=== PATIENT | female | born 1990 | race Hispanic/Latino ===

== ENCOUNTER 2017-08-31 11:21 | Emergency (ER) | payer OTHER ==
[~2017-08-31] VITALS: Ht 152.4 cm; Wt 61.4 kg
[~2017-08-31 11:21] MED LIST: CELEXA40 MG PO; DOXYCYCLINE HY100 MG PO; FLEXERIL10 MG PO; HYDROXYZINE HCL50 MG PO; LORTAB 5-325 M1 EACH PO; MINIPRESS1 MG PO; NAPROXEN500 MG PO; PERCOCET 5/31 TABLET PO; ULTRAM50 MG PO; VISTARIL50 MG PO
[2017-08-31 13:10] LABS: HEMATOCRIT 42.1 % (36.0-46.0); HEMOGLOBIN 14.6 G/DL (11.9-15.5); MCH 30.4 PG (29.0-34.0); MCHC 34.7 G/DL (30.0-36.0); MCV 87.5 FL (83-99); PLATELET COUNT 376 K/uL (156-360); RBC DIS.WIDTH-CV 12.4 % (11.8-14.6); RBC DIS.WIDTH-SD 39.6 % (39-53); RED BLOOD COUNT 4.81 M/uL (3.80-5.20); WHITE BLOOD COUNT 6.8 K/uL (4.1-10.2)
[2017-08-31 13:23] LABS: ALBUMIN 4.7 g/dL (3.2-4.8); CHLORIDE 109 mEq/L (99-109); POTASSIUM 4.1 mEq/L (3.7-5.4); SODIUM 142 mEq/L (136-147)
[2017-08-31 13:25] LABS: GLUCOSE 79 mg/dL (70-99); TOTAL PROTEIN 7.4 g/dL (6.4-8.3)
[2017-08-31 13:27] LABS: TOTAL BILIRUBIN 1.7 mg/dL (0.0-1.0)
[2017-08-31 13:29] LABS: ALKALINE PHOSPHATASE 67 IU/L (3-129); CREATININE 0.8 mg/dL (0.6-1.3); GFR ESTIMATE (CALCULATED) > 59 mL/min/
[2017-08-31 13:30] LABS: UREA NITROGEN (BUN) 10 mg/dL (9-23)
[2017-08-31 13:31] LABS: AST (GOT) 13 IU/L (2-34)
[2017-08-31 13:32] LABS: ALT (GPT) 12 IU/L (3-49)
[2017-08-31 13:38] LABS: QUANTITATIVE HCG < 4.0 MIU/ML
[2017-08-31 14:53] LABS: APPEARANCE CLEAR ((CLEAR)); BILIRUBIN NEGATIVE; BLOOD SMALL; COLOR YELLOW ((YELLOW)); GLUCOSE (STRIP) NEGATIVE; KETONES NEGATIVE; LEUKOCYTES NEGATIVE; NITRITE NEGATIVE; PROTEIN (STRIP) NEGATIVE; SPECIFIC GRAVITY 1.018 (1.000-1.030); UROBILINOGEN 0.2 MG/DL (0.2-1.0)
[2017-08-31 14:58] LABS: BACTERIA NONE SEEN /HPF; EPITHELIAL CELLS RARE /HPF; MUCUS 1+ /LPF; RED BLOOD CELLS 0-5 /HPF (0-5); UCUL ADDED? NO; WHITE BLOOD CELLS 0-5 /HPF (0-5)
[2017-08-31 18:10] VITALS: BP 108/70
== END 2017-08-31 18:11 | disposition home or self-care (01) ==
LOC: EME 11:21
DX: N83.201 Unspecified ovarian cyst, right side (principal); Z97.5 Presence of (intrauterine) contraceptive device; F32.9 Major depressive disorder, single episode, unspecified; F43.10 Post-traumatic stress disorder, unspecified
CPT/HCPCS: 76856; 80053; 81003; 84702; 85027; 99281; 99284